=== PATIENT | male | born 2000 | race Caucasian/White ===

== ENCOUNTER 2022-08-30 17:09 | Emergency (ER) | payer OTHER ==
[~2022-08-30] VITALS: Ht 180.3 cm; Wt 117.9 kg
[2022-08-30] MEDS ORDERED: NAPR550 PO (17:26)
[2022-08-30] MEDS ORDERED: PAROEX473 ML MM (17:26)
[2022-08-30] MEDS ORDERED: AMOX500 PO (17:26)
[2022-08-31] MEDS ORDERED: PRED20 PO (12:12)
[2022-08-31] MEDS ORDERED: HYDR1TAB94 PO (12:12)
== END 2022-08-30 17:30 | disposition home or self-care (01) ==
LOC: ER 17:09
DX: K02.9 Dental caries, unspecified (principal); Z79.899 Other long term (current) drug therapy
CPT/HCPCS: 99282

== ENCOUNTER 2022-08-31 11:32 | Emergency (ER) | payer OTHER ==
[~2022-08-31] VITALS: Ht 180.3 cm; Wt 117.9 kg
[~2022-08-31 11:32] MED LIST: AMOX500 PO; NAPR550 PO; PAROEX473 ML MM
[2022-08-31] MEDS ORDERED: PRED20 PO (12:12)
[2022-08-31] MEDS ORDERED: HYDR1TAB94 PO (12:12)
== END 2022-08-31 12:30 | disposition home or self-care (01) ==
LOC: ER 11:32
DX: K02.9 Dental caries, unspecified (principal)
CPT/HCPCS: 99282; A9270